=== PATIENT | female | born 1990 | race Caucasian/White ===

== ENCOUNTER 2020-10-12 12:31 | Emergency (ER) | payer OTHER ==
[~2020-10-12] VITALS: Ht 157.5 cm; Wt 81.6 kg
[2020-10-12] MEDS ORDERED: PRENA1 TRUE CO1 EACH (13:23)
[2020-10-12] MEDS ORDERED: FOLIC ACID0.8 M1 (13:23)
== END 2020-10-12 18:49 | disposition home or self-care (01) ==
LOC: ER 12:31
DX: O20.0 Threatened abortion (principal)